=== PATIENT | female | born 1985 | race Caucasian/White ===

== ENCOUNTER → 2021-02-11 09:22 | Outpatient (CLI) | payer OTHER, SELFPAY ==
[2021-02-11 11:15] LABS: Hemoglobin 11.8 g/dL (12.0-16.0)
[2021-02-11 11:30] LABS: GTT (PREG) 1 Hour PP 50gm Dose 115 mg/dL (76-139)
== END ==
PROVIDERS: Referring Provider Obstetrics & Gynecology; Visit Provider Obstetrics & Gynecology
DX: Z34.82 Encounter for supervision of other normal pregnancy, second trimester (principal); Z3A.26 26 weeks gestation of pregnancy
CPT/HCPCS: 36415; 82950; 85014; 85018

== ENCOUNTER → 2021-03-03 12:06 | Outpatient (CLI) | payer OTHER, SELFPAY ==
--- NOTE | 2021-03-03 12:07 | DI.US.S_ITS ---
PROCEDURE: US OB LIMITED INDICATIONS: PLACENTA LOCATION OUTSIDE/PRIOR DATING DATA: Last menstrual period (LMP): 08/12/2020. LMP-based estimated date of delivery (EDY): 05/19/2021 . First dating scan (date and location): Not available. . TECHNIQUE: Real-time scanning was performed of the fetus, with image documentation and biometric measurements. Endovaginal scanning: No COMPARISON: None. FINDINGS: General: A single living intrauterine gestation is present. Presentation: Vertex. Placenta: Placental position is anterior, without previa. Amniotic fluid index: 18.3 cm heart rate: 128 beats per minute. Maternal cervical canal: 3.8 cm long. Normal lower limit is 2.5 cm. IMPRESSION: Limited exam demonstrating a single living IUP present in vertex presentation with anterior placenta. No previa. Dictated by: Rei HUFF Interpreted: Bubba Romero MD on 03/03/2021 at 15:39 Transcribed by: CARMELA on 03/03/2021 at 15:43 Approved by: Bubba Romero M.D. on 03/03/2021 at 16:11
== END ==
PROVIDERS: Referring Provider Obstetrics & Gynecology; Visit Provider Obstetrics & Gynecology
DX: Z34.83 Encounter for supervision of other normal pregnancy, third trimester (principal); Z3A.30 30 weeks gestation of pregnancy
CPT/HCPCS: 76815

== ENCOUNTER → 2021-04-22 11:15 | Outpatient (CLI) | payer OTHER, SELFPAY ==
[2021-04-23 11:53] LABS: Strep Grp B PCR NEG for Grp B Strep
== END ==
PROVIDERS: Referring Provider Obstetrics & Gynecology; Visit Provider Obstetrics & Gynecology
DX: Z34.83 Encounter for supervision of other normal pregnancy, third trimester (principal); Z3A.36 36 weeks gestation of pregnancy
CPT/HCPCS: 87653

== ENCOUNTER → 2021-05-17 09:06 | Outpatient (CLI) | payer OTHER, SELFPAY ==
[2021-05-17 09:42] LABS: COVID19 -Nasal RAPID Negative (Negative)
== END ==
DX: Z20.822 Contact with and (suspected) exposure to COVID-19 (principal)
CPT/HCPCS: 87635

== ENCOUNTER 2021-05-17 17:07 | Inpatient (IN) | payer OTHER, SELFPAY ==
[2021-05-17 19:12] LABS: Add Manual Diff / Slide Review NO; Basophils Absolute Auto 0 /uL (0-100); Basophils Percent Auto 0.4 % (0-2); Eosinophils Absolute Auto 100 /uL (0-450); Eosinophils Percent Auto 1.1 % (2-4); Hematocrit 35.1 % (36-46); Hemoglobin 12.3 g/dL (12.0-16.0); Lymphocytes Absolute Auto 1700 /uL (1100-4500); Lymphocytes Percent Auto 17.6 % (25-40); Mean Corpuscular Volume 85.9 fL (80-100); Monocytes Absolute Auto 800 /uL (0-900); Monocytes Percent Auto 8.9 % (3-14); Neutrophils Absolute Auto 6800 /uL (1500-7000); Platelet Count 199 X10^3/uL (150-400); Red Blood Cell Count 4.09 X10^6/uL (4.0-5.2); Red Cell Distribution Width 12.8 % (11.6-14.8); White Blood Cell Count 9.5 X10^3/uL (4.5-11.0)
[2021-05-17] MEDS: miSOPROStoL 25 MCG TABLET 50 MCG PO (19:20)
[2021-05-17 20:27] VITALS: BP 128/75
[2021-05-18] MEDS: LACTATED RINGERS 1,000 ML 100 ML IV ×2 (11:00→13:30)
--- NOTE | 2021-05-18 11:07 | PM.OBHP.1 ---
OB HPI Date/Time Date of admission: 05/17/21 Date Patient Seen: 05/18/21 Time Patient Seen: 11:07 History of Present Condition Chief complaint: : 2 Para: 1 Estimated Date of Delivery: 05/19/21 Estimated Gestational Age (weeks): 39 Narrative: Goldie Andrew is a 36 year old female admitted for induction for discomfort Indications Indication for induction OB: maternal discomfort History of Present care: good care, initiated at week # (12), number of visits (13) and pounds weight gain (37) Dating criteria: LMP confirmed by 1st trimester US Ultrasounds: normal mid trimester US (Except for marginal previa that resolved on subsequent ultrasound) Obstetrical complications: none Medical complications: none Preadmission Labs Blood type: A (+) positive -: Antibody screen: negative, GBS status: negative, HBsAG: negative, HIV: negative and RPR/VDLR: negative -: Chlamydia screen: not detected and Gonorrhea screen: not detected -: Rubella: not immune and Varicella: immune HCAB: negative Cell-free DNA: Normal 1 hr GTT: 115 Prior (ies) History: 06/16/2017 39 week gestation male infant weighing 7 lb 6 oz vaginal delivery with epidural, second-degree tear that did not heal well Evaluation Evaluation Baseline heart rate: 140 Variability: Moderate (11-25) monitor accelerations: Present Monitor Decelerations: Variable Contraction Frequency (minutes): 8 Uterine Contraction Intensity: Mild Category of Tracing: Reactive Status: Category l Cervical dilation (cm): 4 Cervical effacement (%): 80 station: -1 Comments: Posterior cervix [facility] [place] Medical History (Updated 05/12/21 @ 10:51 by Parish Keane MD) Allergic rhinitis Asthma (~1992) Concussion (~2008) Disc degeneration (~2016) Exercise-induced asthma Hemorrhoid (~2016) Ovarian cyst (~2004) Partial placenta previa (~11/2020) Pelvic and perineal pain (~05/2017) Pneumonia (~2008) (spontaneous vaginal delivery) (~06/16/18) Surgical History (Updated 01/13/21 @ 14:55 by Myra Wagoner RN) [place] teeth extracted (~2012) Family History (Updated 01/13/21 @ 14:53 by Myra Wagoner RN) Mother Decreased bone density Father Diabetes mellitus Heart disease Type 2 diabetes mellitus Hyperlipidemia Hypertension H/O heart bypass surgery Grandmother Family estrangement Grandfather Dementia Alzheimers disease Grandmother CVA (cerebral vascular accident) Grandfather FH: Parkinson's disease Brother Asthma Social History marital status: number of children: 1 household members: spouse and children lives independently: Yes pets and animals: Yes (X 2 dogs) education level: college (some College ) occupational status: unemployed (Just moved here from [place] : under quarantine still) current occupational exposures/hazards: No 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 needs: No Smoking Status: Never smoker second hand exposure: No alcohol intake: former (pre- : 2X/month) substance use type: does not use Meds Home Medications and Allergies Home Medications Medication Instructions Recorded Confirmed Type albuterol sulfate 90 mcg/actuation 2 puff INHALATION Q6H PRN 01/13/21 05/17/21 History aerosol inhaler doxylamine succinate 25 mg tablet 12.5 mg PO BEDTIME PRN tab 01/13/21 05/17/21 History (Unisom (doxylamine)) prenat.vits,sonya,[id number] 1 tab PO DAILY #90 tab 03/12/21 05/17/21 Rx Allergies Allergy/AdvReac Type Severity Reaction Status Date / Time house dust Allergy Intermediate Sneezing Verified 01/13/21 14:18 and watery eyes Review of Systems Review of Systems Narrative: Patient denies headaches, scotomata, epigastric pain. Good movement. No leakage of fluid. ROS: Yes All systems reviewed with the patient and are negative except as otherwise documented Exam Vital Signs (past 8 hours): Blood pressure 128/75, pulse of 94 Narrative Exam Narrative: HEENT exam within normal limits. Lungs are clear to auscultation percussion. Heart is regular rate and rhythm no S3-S4 or murmurs. Abdomen is gravid. Fetus is vertex. Extremities without edema and nontender. Objective Labs Result Diagrams: 05/17/21 19:00 Labs: Laboratory Results - last 24 hr 05/17/21 05/17/21 19:00 19:00 WBC 9.5 RBC 4.09 Hgb 12.3 Hct 35.1 L MCV 85.9 MCH 30.0 MCHC 35.0 RDW 12.8 Plt Count 199 Neut % (Auto) 72.0 Lymph % (Auto) 17.6 L [place] % (Auto) 8.9 Eos % (Auto) 1.1 L Baso % (Auto) 0.4 Neut # (Auto) 6800 Lymph # (Auto) 1700 [place] # (Auto) 800 Eos # (Auto) 100 Baso # (Auto) 0 Blood Type A Positive Antibody Screen Negative Assessment and Plan Assessment and Plan Assessment and Plan narrative: 39 week gestation for induction for maternal discomfort. Patient received 1 dose of Cytotec on 05/17/2021. Her cervix has progressed. Pitocin will be begun when nursing is available. Patient is interested in epidural catheter for pain control.
[2021-05-18] MEDS: OXYTOCIN PREMIX 30 UNIT/500 ML PLAST..BAG IV (12:58)
--- NOTE | 2021-05-18 19:35 | PM.OBPRVD ---
Events: Labor Induction (Maternal discomfort) Labor & Delivery Delivery date: 05/18/21 Cervical ripening method: per misoprostal protocol Induction method: per pitocin protocol Delivery monitor: external FHT and external uterine Route of delivery: L&D Laceration Description: Perineal - 2nd Degree Delivery repair: chromic (3 0) Estimated blood loss (mL): 200 Anesthesia Type: Epidural Narrative: Patient arrived on Labor and delivery for induction for maternal discomfort on 05/17/2021. She received 1 dose of Cytotec. She had Pitocin begun and epidural catheter placed. heart tones category 1 to category 2. Patient was AROM for clear fluid. With pushing the fetus had significant decelerations that were managed by position change, O2, fluid bolus, Pitocin stopped. The patient had a spontaneous vaginal delivery over an intact perineum. The viable male infant had a double nuchal cord that was released prior to delivery of the shoulders. The fetus was delivered and placed on maternal abdomen. After the cord stopped pulsating the cord was clamped, cut, and cord bloods obtained. The placenta delivered spontaneously, intact, with 3 vessels. There were no cervical tears. A second-degree perineal tear was repaired with 3 0 chromic suture in 3 layers. Estimated blood loss was 200 cc. Both infant and mother doing well. [place] Baby 1: Infant gender: Male Presentation: vertex Position: Right Occiput Anterior Placenta delivery description: Spontaneous Cord Vessel Description: 3 Vessels and Nuchal Cord (X2) score (1 min): 8 score (5 min): 9 Plan for aftercare: Routine care
[2021-05-18] MEDS: IBUPROFEN 600 MG TABLET PO (22:34)
[2021-05-18] MEDS: ACETAMINOPHEN 325 MG TABLET 650 MG PO (22:34)
[2021-05-19] MEDS: IBUPROFEN 600 MG TABLET PO ×2 (05:13→13:23)
[2021-05-19] MEDS: ACETAMINOPHEN 325 MG TABLET 650 MG PO ×2 (05:13→13:20)
[2021-05-19 07:37] LABS: Add Manual Diff / Slide Review NO; Basophils Absolute Auto 0 /uL (0-100); Basophils Percent Auto 0.2 % (0-2); Eosinophils Absolute Auto 100 /uL (0-450); Eosinophils Percent Auto 0.7 % (2-4); Hematocrit 36.4 % (36-46); Hemoglobin 12.2 g/dL (12.0-16.0); Lymphocytes Absolute Auto 1800 /uL (1100-4500); Lymphocytes Percent Auto 12.6 % (25-40); Mean Corpuscular HGB Conc 33.4 % (30-36); Mean Corpuscular Hemoglobin 29.2 PG (26-34); Mean Corpuscular Volume 87.2 fL (80-100); Monocytes Absolute Auto 800 /uL (0-900); Monocytes Percent Auto 5.5 % (3-14); Neutrophils Absolute Auto 11700 /uL (1500-7000); Platelet Count 184 X10^3/uL (150-400); Red Blood Cell Count 4.17 X10^6/uL (4.0-5.2); White Blood Cell Count 14.4 X10^3/uL (4.5-11.0)
--- NOTE | 2021-05-19 10:59 | PM.OBDS.1 ---
Discharge Providers Provider Date of admission: 05/17/21 17:07 Discharge Date: 05/19/21 Primary care physician: Doctor Jennifer MD Consults: 05/17/21 18:04 Consult to Anesthesiology Urgent Comment: Consulting Provider: Anesthesiologist Reason for consultation: CHARIS placement in labor 05/19/21 19:32 Consult to Turning Lathe Tender Routine Comment: Discharge provider: Ashwini Hrust MD Summary Hospital Course Date Patient Seen: 05/19/21 Time Patient Seen: 11:00 Diagnoses: Vaginal delivery with repair of second-degree tear Hospital Course: Patient arrived on Labor and delivery for induction for maternal discomfort. She received Cytotec x1 then was started on Pitocin. She had a epidural catheter for pain control. She had a spontaneous vaginal delivery with repair of a second-degree tear. Both and mother doing well. She is breast-feeding. She is urinating and ambulating well. No pain concerns. Bleeding is mild. Peripartum Data Infant Delivery Method: Natural Vaginal Laceration Description: Perineal - 2nd Degree Procedures: Prostin followed by Pitocin induction. Epidural catheter, spontaneous vaginal delivery with repair of second-degree tear. complications: none [place] 1: Gender: Male Disposition of : home Discharge Diagnosis (1) Vaginal delivery: Status: Acute Status at Discharge Cognitive/behavioral status at discharge: oriented Functional status at discharge: independent ambulation Overall status at discharge: patient is progressing back to baseline Time Spent with Patient Time attestation: Total time spent providing and/or coordinating discharge services: Time spent: Less than 30 minutes Objective Labs Result Diagrams: 05/19/21 06:35 Labs: Laboratory Results - last 24 hr 05/19/21 06:35 WBC 14.4 H D RBC 4.17 Hgb 12.2 Hct 36.4 MCV 87.2 MCH 29.2 MCHC 33.4 RDW 13.0 Plt Count 184 Neut % (Auto) 81.0 H Lymph % (Auto) 12.6 L [place] % (Auto) 5.5 Eos % (Auto) 0.7 L Baso % (Auto) 0.2 Neut # (Auto) 26757 H Lymph # (Auto) 1800 [place] # (Auto) 800 Eos # (Auto) 100 Baso # (Auto) 0 Exam Vital Signs (past 8 hours): Blood pressure 121/63, pulse of 86, temperature 97.7? Narrative Exam Narrative: Abdomen is soft, nontender. Uterus is firm, U-1, nontender. Repair is intact. Mild lochia. Extremities with trace edema on the right no edema on the left and nontender. Patient states the edema on her right leg has been unchanged throughout her entire . Patient is Rh positive, she received Tdap in the 3rd trimester, she will receive the rubella vaccine prior to discharge. Discharge Plan Discharge Plan Patient Disposition: Home Discharge orders & Medications Prescriptions: Continued Unisom (doxylamine) 25 mg tablet 12.5 mg PO BEDTIME PRN (Reason: Wheezing) RF: 0 albuterol sulfate 90 mcg/actuation HFA aerosol inhaler 2 puff inhalation Q6H PRN (Reason: Wheezing) RF: 0 prenat.vits,sonya,[id number] Tablet 1 tab PO DAILY Qty: 90 RF: 4 Follow up/Referrals: Ashwini Hurst MD [Physician] - 1 Month Doctor Rodriguez MD [Primary Care Provider] - Diet/Activity/Treatments Diet: Regular Activity: Nothing in vagina for 6 weeks Skin/Wound/Dressing Care Report to your healthcare provider any signs of infection, such as:: chills, fever and increased pain Discharge Data Primary Care Provider: Doctor Jennifer
[2021-05-19 13:20] VITALS: TEMP 36.8
[2021-05-19 13:23] VITALS: TEMP 36.8
[2021-05-19] MEDS: DERMOPLAST SPRAY 20% 60 ML 1 SPRAY TOP (13:24)
[2021-05-19 15:26] VITALS: BP 128/78; PULSE 98; RESP 14; TEMP 36.7
== END 2021-05-19 16:30 | disposition home or self-care (01) | DRG 807 ==
PROVIDERS: Obstetrics & Gynecology; Admitting Provider Specialist; Referring Provider Specialist; Visit Provider Specialist
DX: O70.1 Second degree perineal laceration during delivery (principal); Z37.0 Single live birth; Z20.822 Contact with and (suspected) exposure to COVID-19; Z3A.39 39 weeks gestation of pregnancy; O69.81X0 Labor and delivery complicated by cord around neck, without compression, not applicable or unspecified
CPT/HCPCS: 01967; 36415; 59050; 59200; 59410; 85025; 86850; 86900; 86901; 87635; G0379; J2590